=== PATIENT | male | born 1975 | race Caucasian/White ===

== ENCOUNTER 2017-08-20 05:57 | Emergency (ER) | payer MEDICAID ==
--- NOTE | 2017-08-20 06:11 | ED Physician Documentation ---
PD HPI ABD PAIN - Stated complaint Stated Complaint: ABD PX - Chief complaint Chief Complaint: Abd Pain - History obtained from History obtained from: Patient - History of Present Illness Timing - onset: How many days ago (2) Timing - duration: Days Timing - details: Gradual onset, Waxing and waning Quality: Cramping, Aching Location: Suprapubic, LLQ Improved by: No: Eating Worsened by: Position, Palpation. No: Eating, Breathing Associated symptoms: Nausea. No: Fever, Vomiting, Diarrhea, Melena, Hematochezia, Dysuria Similar symptoms before: Diagnosis (diverticulitis couple of times) Recently seen: Not recently seen Review of Systems Constitutional: denies: Fever, Chills, Myalgias GI: reports: Abdominal Pain, Nausea (intermittent, but has been still eating and drinking fluids.). denies: Diarrhea, Bloody / black stool : denies: Dysuria, Frequency PD PAST MEDICAL HISTORY - Past Medical History Cardiovascular: None Respiratory: None Neuro: None GI: Diverticulitis - Past Surgical History Past Surgical History: Yes - Present Medications Home Medications: Ambulatory Orders Medication Instructions Recorded Confirmed Cyclobenzaprine [Flexeril] 10 mg PO TID PRN #20 tablet 10/17/16 Cephalexin [Keflex] 500 mg PO BID #14 capsule 08/20/17 HYDROcod/ACETAM 5/325 [[place] 5/325] 1 tab PO Q6H PRN #15 tablet 08/20/17 Ibuprofen [Motrin] 600 mg PO TID #20 tab 08/20/17 Metronidazole [Flagyl] 500 mg PO BID #14 tablet 08/20/17 Ondansetron Odt [Zofran] 4 mg TL Q6H PRN #15 tablet 08/20/17 tiZANidine [Zanaflex] 4 mg PO PRN PRN 08/20/17 08/20/17 - Allergies Allergies/Adverse Reactions: Allergies Allergy/AdvReac Type Severity Reaction Status Date / Time No Known Drug Allergies Allergy Verified 08/20/17 06:03 - Social History Does the pt smoke?: No Smoking Status: Never smoker Does the pt drink ETOH?: Yes Does the pt have substance abuse?: No - Immunizations Immunizations are current?: Yes - POLST Patient has POLST: No PD ED PE NORMAL - Vitals Vital signs reviewed: Yes - General General: Alert and oriented X 3, No acute distress, Well developed/nourished - Neck Neck: Supple, no meningeal sign, No adenopathy - Cardiac Cardiac: RRR, No murmur - Respiratory Respiratory: Clear bilaterally - Abdomen Abdomen: Normal bowel sounds, Soft, Non distended, No organomegaly, Other ( tender LLQ/suprapubic without guarding nor percussion tenderness. No rebound. ) - Male Male : Deferred - Rectal Rectal: Deferred - Back Back: No CVA TTP - Derm Derm: Normal color, Warm and dry - Neuro Neuro: Alert and oriented X 3, No motor deficit, Normal speech Results - Vitals Vitals: Vital Signs - 24 hr 08/20/17 06:00 Temperature 36.3 C L Heart Rate 108 H Respiratory 16 Rate Blood Pressure 144/88 H O2 Saturation 97 Oxygen O2 Source Room air Departure - Departure Disposition: 01 Home, Self Care Clinical Impression: Abdominal pain Qualifiers: Abdominal location: lower abdomen, unspecified Qualified Code(s): R10.30 - Lower abdominal pain, unspecified Diverticulitis Qualifiers: Diverticulitis site: large intestine Diverticulitis bleeding: without bleeding Diverticulitis complication: without perforation or abscess Qualified Code(s): K57.32 - Diverticulitis of large intestine without perforation or abscess without bleeding Condition: Stable Record reviewed to determine appropriate education?: Yes Instructions: ED Abdominal Pain Unkn Cause, ED Diverticulitis Follow-Up: Rosi Monson ARNP [Primary Care Provider] - Prescriptions: Metronidazole [Flagyl] 500 mg PO BID #14 tablet Cephalexin [Keflex] 500 mg PO BID #14 capsule Ibuprofen [Motrin] 600 mg PO TID #20 tab HYDROcod/ACETAM 5/325 [[place] 5/325] 1 tab PO Q6H PRN #15 tablet PRN Reason: Pain Ondansetron Odt [Zofran] 4 mg TL Q6H PRN #15 tablet PRN Reason: Nausea / Vomiting Comments: If this is feeling like prior episodes of diverticulitis and you don't seem to bad at this point, then can be treated presumptively and with oral medications. Keflex and Flagyl twice daily (antibiotics) for a week. Ibuprofen twice daily for inflammation. Add Zofran if needed for nausea, and for pain Tylenol or hydrocodone as needed. Recheck if not improving over the next 2-3 days, and sooner if worse pain, fevers, vomiting, bloody stools, other concerns.
[2017-08-20] MEDS ORDERED: SODIUM CHLORIDE FLUSH 0.9% 10 ML SYRINGE IVP ONE (06:18)
[2017-08-20] MEDS ORDERED: CEPHALEXIN 250 MG CAPSULE PO STA (06:23)
[2017-08-20] MEDS ORDERED: ONDANSETRON ODT 4 MG TABLET TL STA (06:23)
[2017-08-20] MEDS ORDERED: HYDROcod/ACETAM 5/325 MG TABLET PO STA (06:23)
[2017-08-20] MEDS ORDERED: HYDROcod/ACET 5/325 Prepack 6 PO ONE ×2 (06:23→06:34)
[2017-08-20] MEDS ORDERED: metroNIDAZOLE 250 MG TABLET PO STA (06:23)
[2017-08-20] MEDS ORDERED: IBUPROFEN 400 MG TABLET PO STA (06:23)
[2017-08-20] MEDS ORDERED: metroNIDAZOLE 250 MG TABLET PO ONE (06:32)
[2017-08-20] MEDS ORDERED: HYDROcod/ACETAM 5/325 MG TABLET ONE (06:33)
[2017-08-20] MEDS ORDERED: CEPHALEXIN 250 MG CAPSULE PO ONE (06:33)
[2017-08-20] MEDS ORDERED: IBUPROFEN 400 MG TABLET PO ONE (06:33)
[2017-08-20] MEDS ORDERED: ONDANSETRON ODT 4 MG TABLET ONE (06:34)
[2017-08-20 06:46] VITALS: BP 138/86
== END 2017-08-20 06:43 | disposition home or self-care (01) ==
LOC: ED 05:57
DX: K57.32 Diverticulitis of large intestine without perforation or abscess without bleeding (principal)
CPT/HCPCS: 99283; 99284; A9270; Q0162

== ENCOUNTER 2017-08-29 13:15 | Emergency (ER) | payer MEDICAID ==
--- NOTE | 2017-08-29 13:52 | ED Physician Documentation ---
PD HPI ABD PAIN - Stated complaint Stated Complaint: ABD PX - Chief complaint Chief Complaint: Abd Pain - History obtained from History obtained from: Patient - History of Present Illness Timing - onset: How many days ago (about 10 days ago) Timing - duration: Days (has had this pain for about 10 days, seen in ED at the initial of the pain and treated empirically for diverticulitis. He says he improved but not all better and is having increased pain again after being done the abx couple days ago. No fevers, no vomiting, some soft stools.) Timing - details: Gradual onset, Still present Quality: Cramping, Aching Location: Suprapubic, LLQ Radiation: No: Left flank, Right flank Improved by: Position. No: Eating Worsened by: Position, Palpation. No: Eating, Moving, Breathing Associated symptoms: No: Fever, Nausea, Vomiting, Diarrhea, Hematochezia Similar symptoms before: Diagnosis (diverticulitis) Recently seen: Emergency Dept (10 days ago for this) Review of Systems Constitutional: denies: Fever, Chills Nose: denies: Rhinorrhea / runny nose, Congestion Throat: denies: Sore throat Respiratory: denies: Cough GI: reports: Abdominal Pain. denies: Nausea, Vomiting, Diarrhea, Bloody / black stool : denies: Dysuria, Frequency, Hematuria Skin: denies: Rash PD PAST MEDICAL HISTORY - Past Medical History Past Medical History: Yes Cardiovascular: None Respiratory: None Neuro: None GI: Diverticulitis - Past Surgical History Past Surgical History: Yes - Present Medications Home Medications: Ambulatory Orders Medication Instructions Recorded Confirmed Amox/Clav 875/125 [Augmentin] 1 each PO Q12H #20 tablet 08/29/17 HYDROcod/ACETAM 5/325 [[place] 5/325] 1 tab PO Q6H PRN #20 tablet 08/29/17 Metronidazole [Flagyl] 500 mg PO BID #14 tablet 08/29/17 - Allergies Allergies/Adverse Reactions: Allergies Allergy/AdvReac Type Severity Reaction Status Date / Time No Known Drug Allergies Allergy Verified 08/29/17 13:24 - Social History Does the pt smoke?: No Smoking Status: Never smoker Does the pt drink ETOH?: Yes Does the pt have substance abuse?: No - Immunizations Immunizations are current?: Yes - POLST Patient has POLST: No PD ED PE NORMAL - Vitals Vital signs reviewed: Yes - General General: Alert and oriented X 3, No acute distress, Well developed/nourished - HEENT HEENT: Moist mucous membranes, Pharynx benign - Neck Neck: Supple, no meningeal sign, No adenopathy - Cardiac Cardiac: RRR, No murmur - Respiratory Respiratory: Clear bilaterally - Abdomen Abdomen: Normal bowel sounds, Soft, Non distended, No organomegaly, Other ( tender llq/suprapubic area with some local guarding. No percussion nor rebound. ) - Male Male : Deferred - Rectal Rectal: Deferred - Back Back: No CVA TTP - Derm Derm: Normal color, Warm and dry, No rash - Extremities Extremities: No tenderness to palpate, Normal ROM s pain - Neuro Neuro: Alert and oriented X 3, No motor deficit, Normal speech Results - Vitals Vitals: Vital Signs - 24 hr 08/29/17 08/29/17 08/29/17 13:21 14:38 16:15 Temperature 36 C L 36.2 C L 36.3 C L Heart Rate 75 60 73 Respiratory 16 12 15 Rate Blood Pressure 138/94 H 155/94 H 141/91 H O2 Saturation 99 96 97 Oxygen O2 Source Room air - Labs Labs: Laboratory Tests 08/29/17 08/29/17 14:10 14:10 WBC 7.4 RBC 5.50 Hgb 16.1 Hct 46.9 MCV 85.3 MCH 29.3 MCHC 34.3 RDW 13.5 Plt Count 271 MPV 8.1 Neut # 5.2 Lymph # 1.5 [place] # 0.6 Eos # 0.1 Baso # 0.1 Absolute Nucleated RBC 0.03 Nucleated RBC % 0.5 Sodium 139 Potassium 4.2 Chloride 100 L Carbon Dioxide 28 Anion Gap 11.0 BUN 23 H Creatinine 1.2 Estimated GFR (MDRD) 67 L Glucose 102 H Calcium 10.0 Total Bilirubin 0.8 AST 35 ALT 75 H Alkaline Phosphatase 64 Total Protein 8.1 Albumin 4.9 Globulin 3.2 Albumin/Globulin Ratio 1.5 Lipase 40 - Rads (name of study) abd CT Radiology: Prelim report reviewed (diverticulosis, with some stranding in sigmoid area and a <1 cm rounded fluid collection near that, likely a small abscess. ) PD MEDICAL DECISION MAKING - ED course Complexity details: reviewed results, considered differential, d/w patient, d/w healthcare management consultant (Dr. Romo, who felt his clinical exam and status (no fever, not vomiting, not hurting too badly) along with CT findings does not warrant admission. To change home abx to Augmentin/Flagyl and f/u PMD in few days. ) Departure - Departure Disposition: Home, Self Care Clinical Impression: Diverticulitis Qualifiers: Diverticulitis site: large intestine Diverticulitis bleeding: without bleeding Diverticulitis complication: with abscess Qualified Code(s): K57.20 - Diverticulitis of large intestine with perforation and abscess without bleeding Condition: Stable Record reviewed to determine appropriate education?: Yes Instructions: ED Diverticulitis Follow-Up: Rosi Monson ARNP [Primary Care Provider] - Prescriptions: Amox/Clav 875/125 [Augmentin] 1 each PO Q12H #20 tablet HYDROcod/ACETAM 5/325 [[place] 5/325] 1 tab PO Q6H PRN #20 tablet PRN Reason: Pain Metronidazole [Flagyl] 500 mg PO BID #14 tablet Comments: There is just a very small abscess less than a centimeter in size and mild inflammation around it. Our surgeon health companion looked at it and feels that this can be treated still with just oral medication outpatient. We will change the antibiotics though to Augmentin and metronidazole twice daily. Drink lots of fluids. Use some probiotics once or twice a day. Add Tylenol or hydrocodone if needed for pain. Return if not improved and without pain over the next several days. Return sooner if increasing pain, fever, diffuse pain, other concerns. Discharge Date/Time: 08/29/17 16:42
[2017-08-29] MEDS ORDERED: SODIUM CHLORIDE FLUSH 0.9% 10 ML SYRINGE IVP ONE (14:07)
[2017-08-29 14:23] LABS: BASOPHILS # (AUTO) 0.1 10^3/uL (0.0-0.1); BASOPHILS % (AUTO) 0.9 %; EOSINOPHILS # (AUTO) 0.1 10^3/uL (0.0-0.7); EOSINOPHILS % (AUTO) 1.2 %; HCT - HEMATOCRIT 46.9 % (42.0-52.0); HGB - HEMOGLOBIN 16.1 g/dL (14.0-18.0); LYMPHOCYTES # (AUTO) 1.5 10^3/uL (1.5-3.5); LYMPHOCYTES % (AUTO) 20.6 %; MEAN CORPUSCULAR HEMOGLOBIN 29.3 pg (27.0-31.0); MEAN CORPUSCULAR HGB CONC 34.3 g/dL (32.0-36.0); MEAN CORPUSCULAR VOLUME 85.3 fL (80.0-94.0); MEAN PLATELET VOLUME 8.1 fL (7.4-11.4); MONOCYTES # (AUTO) 0.6 10^3/uL (0.0-1.0); MONOCYTES % (AUTO) 7.5 %; NEUTROPHILS # (AUTO) 5.2 10^3/uL (1.5-6.6); NEUTROPHILS % (AUTO) 69.8 %; NUCLEATED RED BLOOD CELLS AUTO 0.5 /100WBC; RED CELL DISTRIBUTION WIDTH 13.5 % (12.0-15.0); UNCORRECTED WHITE BLOOD COUNT 7.4 x10^3/uL; WHITE BLOOD COUNT 7.4 x10^3/uL (4.8-10.8)
[2017-08-29] MEDS ORDERED: IOPAMIDOL-300 100 ML VIAL ONE (14:23)
[2017-08-29] MEDS ORDERED: metroNIDAZOLE 500 MG/100 ML 500 MG/100 ML BAG ONE (14:27)
[2017-08-29] MEDS ORDERED: KETOROLAC 30 MG/ML VIAL ONE (14:27)
[2017-08-29] MEDS ORDERED: cefTRIAXone 1 GM VIAL ONE (14:28)
[2017-08-29] MEDS: KETOROLAC 60 MG/2 ML VIAL IVP STA (14:29)
[2017-08-29] MEDS: cefTRIAXone 1 GM in SODIUM CHLORIDE 0.9% MINIBAG 100 ML IV STA (14:29)
[2017-08-29 14:38] LABS: ALBUMIN/GLOBULIN RATIO 1.5 (1.0-2.2); BILIRUBIN,TOTAL 0.8 mg/dL (0.2-1.0); CREATININE 1.2 mg/dL (0.6-1.2); POTASSIUM 4.2 mmol/L (3.5-5.0); TOTAL PROTEIN 8.1 g/dL (6.7-8.2)
[2017-08-29] MEDS: SODIUM CHLORIDE 0.9% 1,000 ML IV ONE (14:45)
[2017-08-29] MEDS: metroNIDAZOLE 500 MG/100 ML 500 MG/100 ML BAG IV ONE (15:03)
--- NOTE | 2017-08-29 15:15 | CT Report ---
EXAM: CT ABDOMEN AND PELVIS EXAM DATE: 08/29/2017 02:52 PM. CLINICAL HISTORY: Abdominal pain COMPARISONS: None. TECHNIQUE: Routine helical CT imaging was performed through the abdomen and pelvis. IV contrast: 100 cc Isovue-300. Enteric contrast: No. Reconstructions: Coronal and sagittal. In accordance with CT protocol optimization, one or more of the following dose reduction techniques w ere utilized for this exam: automated exposure control, adjustment of mA and/or KV based on patient s ize, or use of iterative reconstructive technique. FINDINGS: Lung Bases: Unremarkable. Liver: Normal. No masses. Gallbladder/Bile Ducts: Unremarkable. Spleen: There is mild splenomegaly. Pancreas: Normal. Adrenal Glands: Normal. Kidneys: Normal. No masses or hydronephrosis. Peritoneal Cavity/Bowel: There is distal colon diverticulosis. There is minimal adjacent fat strandin g. There is a subcentimeter peripherally enhancing fluid collection along the anterior margin of the sigmoid colon (image 80 series 3). Stomach and small bowel demonstrate no acute abnormalities. The ap pendix is well visualized and normal. Pelvic Organs: Normal. The bladder and visualized pelvic organs are within normal limits. Vasculature: No aneurysms or other significant abnormality. Bones: No significant abnormality. Other: None. IMPRESSION: 1. There is sigmoid colon diverticulosis with minimal associated adjacent fat stranding. Findings cou ld represent mild diverticulitis. There is a subcentimeter peripherally enhancing fluid collection al latasha the anterior margin of the sigmoid colon which could represent a small abscess. There is no evide nce of perforation or drainable abscess. 2. No evidence of appendicitis or bowel obstruction. 3. There is mild splenomegaly. [facility] Referring Provider Line: [phone] SITE ID: [id number]
[2017-08-29 16:15] VITALS: BP 141/91
== END 2017-08-29 16:42 | disposition home or self-care (01) ==
LOC: ED 13:15
DX: K57.20 Diverticulitis of large intestine with perforation and abscess without bleeding (principal)
CPT/HCPCS: 36415; 74177; 80053; 83690; 85025; 99283; 99284; Q9967

== ENCOUNTER 2018-07-23 15:12 | Emergency (ER) | payer MEDICAID ==
[2018-07-23 15:52] LABS: BILIRUBIN,URINE NEGATIVE (NEGATIVE); GLUCOSE, URINE (UA) NEGATIVE (NEGATIVE); KETONES,URINE (UA) NEGATIVE (NEGATIVE); LEUKOCYTE ESTERASE, URINE NEGATIVE (NEGATIVE); NITRITE,URINE NEGATIVE (NEGATIVE); OCCULT BLOOD,URINE SMALL (NEGATIVE); PH,URINE 5.5 PH (5.0-7.5); PROTEIN,URINE NEGATIVE (NEGATIVE); UROBILINOGEN,URINE 0.2 (NORMAL) E.U./dL (NORMAL)
[2018-07-23 15:53] LABS: CLARITY,URINE CLEAR (CLEAR)
[2018-07-23 16:08] LABS: BACTERIA,URINE None Seen /HPF (None Seen); RBC,URINE 0-5 /HPF (0-5); SQUAMOUS EPITHELIAL CELL,UR NONE SEEN (<= Few)
[2018-07-23 16:27] LABS: BASOPHILS # (AUTO) 0.1 10^3/uL (0.0-0.1); EOSINOPHILS # (AUTO) 0.1 10^3/uL (0.0-0.7); EOSINOPHILS % (AUTO) 1.8 %; HGB - HEMOGLOBIN 16.1 g/dL (14.0-18.0); MEAN CORPUSCULAR HEMOGLOBIN 30.1 pg (27.0-31.0); MEAN CORPUSCULAR HGB CONC 35.1 g/dL (32.0-36.0); MEAN CORPUSCULAR VOLUME 85.6 fL (80.0-94.0); MONOCYTES # (AUTO) 0.4 10^3/uL (0.0-1.0); MONOCYTES % (AUTO) 6.6 %; NEUTROPHILS # (AUTO) 3.6 10^3/uL (1.5-6.6); NEUTROPHILS % (AUTO) 58.6 %; PLT - PLATELET COUNT 250 10^3/uL (130-450); RED BLOOD COUNT 5.34 10^6/uL (4.70-6.10); WHITE BLOOD COUNT 6.2 x10^3/uL (4.8-10.8)
[2018-07-23 16:41] LABS: ALBUMIN 4.8 g/dL (3.2-5.5); ALBUMIN/GLOBULIN RATIO 1.4 (1.0-2.2); BILIRUBIN,TOTAL 0.8 mg/dL (0.2-1.0); CALCIUM 9.5 mg/dL (8.5-10.3); TOTAL PROTEIN 8.3 g/dL (6.7-8.2)
--- NOTE | 2018-07-23 16:53 | ED Physician Documentation ---
PD HPI ABD PAIN - Stated complaint Stated Complaint: LOWER AB PX - Chief complaint Chief Complaint: Abd Pain - History obtained from History obtained from: Patient - History of Present Illness Timing - onset: How many days ago (3) Timing - duration: Days (3) Timing - details: Gradual onset, Still present, Waxing and waning Quality: Cramping, Aching Location: Suprapubic, LLQ Radiation: No: Lower back Improved by: Laying still. No: Eating Worsened by: Moving, Palpation. No: Eating, Breathing Associated symptoms: Nausea. No: Fever, Vomiting, Diarrhea, Hematochezia, Loss of appetite Similar symptoms before: Diagnosis (diverticulitis 3 times previous. Treated outpt twice of those.) Recently seen: Not recently seen Review of Systems Constitutional: denies: Fever, Chills Nose: denies: Rhinorrhea / runny nose, Congestion Throat: denies: Sore throat Cardiac: denies: Chest pain / pressure, Palpitations Respiratory: denies: Dyspnea, Cough GI: reports: Abdominal Pain, Nausea. denies: Vomiting, Constipation, Diarrhea, Bloody / black stool : denies: Dysuria, Frequency PD PAST MEDICAL HISTORY - Past Medical History Past Medical History: Yes Cardiovascular: None Respiratory: None GI: Diverticulitis - Past Surgical History Past Surgical History: Yes - Present Medications Home Medications: Ambulatory Orders Medication Instructions Recorded Confirmed HYDROcod/ACETAM 5/325 [[place] 5/325] 1 tab PO Q6H PRN #20 tablet 08/29/17 Cephalexin [Keflex] 500 mg PO BID #14 capsule 07/23/18 Cyclobenzaprine [Flexeril] 1 tab PO TID 07/23/18 L. Rhamnosus GG/Inulin [Culturelle 1 tab PO DAILY 07/23/18 Probiotics Capsule] Metronidazole [Flagyl] 500 mg PO BID #14 tablet 07/23/18 Naproxen 375 mg PO BID #20 tablet 07/23/18 Ondansetron HCl [Zofran] 4 mg PO Q6H PRN #10 tablet 07/23/18 Oxycodone HCl/Acetaminophen 1 each PO Q6H PRN #20 tablet 07/23/18 [Percocet 5-325 mg Tablet] raNITIdine [Zantac] 1 tab PO DAILY 07/23/18 - Allergies Allergies/Adverse Reactions: Allergies Allergy/AdvReac Type Severity Reaction Status Date / Time No Known Drug Allergies Allergy Verified 07/23/18 16:33 - Social History Does the pt smoke?: No Smoking Status: Never smoker Does the pt drink ETOH?: Yes Does the pt have substance abuse?: No - Immunizations Immunizations are current?: Yes - POLST Patient has POLST: No PD ED PE NORMAL - Vitals Vital signs reviewed: Yes - General General: Alert and oriented X 3, No acute distress, Well developed/nourished - HEENT HEENT: Pharynx benign - Neck Neck: Supple, no meningeal sign, No adenopathy - Cardiac Cardiac: RRR, No murmur - Respiratory Respiratory: Clear bilaterally - Abdomen Abdomen: Normal bowel sounds, Soft, Non distended, No organomegaly, Other (mild tenderness LLQ/suprapubic without peritoneal signs. ) - Male Male : Deferred - Rectal Rectal: Deferred - Back Back: No CVA TTP - Derm Derm: Normal color, Warm and dry - Neuro Neuro: Alert and oriented X 3, No motor deficit, Normal speech Results - Vitals Vitals: Oxygen O2 Source Room air - Labs Labs: Laboratory Tests 07/23/18 07/23/18 07/23/18 15:48 16:20 16:20 WBC 6.2 RBC 5.34 Hgb 16.1 Hct 45.7 MCV 85.6 MCH 30.1 MCHC 35.1 RDW 13.0 Plt Count 250 MPV 8.0 Neut # (Auto) 3.6 Lymph # (Auto) 2.0 [place] # (Auto) 0.4 Eos # (Auto) 0.1 Baso # (Auto) 0.1 Absolute Nucleated RBC 0.01 Nucleated RBC % 0.2 Sodium 137 Potassium 4.1 Chloride 103 Carbon Dioxide 25 Anion Gap 9.0 BUN 19 Creatinine 1.0 Estimated GFR (MDRD) 82 L Glucose 93 Calcium 9.5 Total Bilirubin 0.8 AST 36 ALT 60 Alkaline Phosphatase 57 Total Protein 8.3 H Albumin 4.8 Globulin 3.5 Albumin/Globulin Ratio 1.4 Lipase 35 Urine Color YELLOW Urine Clarity CLEAR Urine pH 5.5 Ur Specific [place] 1.015 Urine Protein NEGATIVE Urine Glucose (UA) NEGATIVE Urine Ketones NEGATIVE Urine Occult Blood SMALL H Urine Nitrite NEGATIVE Urine Bilirubin NEGATIVE Urine Urobilinogen 0.2 (NORMAL) Ur Leukocyte Esterase NEGATIVE Urine RBC 0-5 Urine WBC 0-3 Ur Squamous Epith Cells NONE SEEN Urine Bacteria None Seen Ur Microscopic Review INDICATED Urine Culture Comments NOT INDICATED PD MEDICAL DECISION MAKING - ED course Complexity details: considered differential (he has had several episodes of diverticulitis with same symptoms and is okay with treating empirically outpatient. Tried to get PCP appt but referred to ER. ), d/w patient - Sepsis Event Vital Signs: Oxygen O2 Source Room air Departure - Departure Disposition: Home, Self Care Clinical Impression: Diverticulitis Qualifiers: Diverticulitis site: unspecified part of intestinal tract Diverticulitis bleeding: without bleeding Diverticulitis complication: without perforation or abscess Qualified Code(s): K57.92 - Diverticulitis of intestine, part unspecified, without perforation or abscess without bleeding Abdominal pain Qualifiers: Abdominal location: lower abdomen, unspecified Qualified Code(s): R10.30 - Lower abdominal pain, unspecified Condition: Stable Record reviewed to determine appropriate education?: Yes Instructions: ED Diverticulitis Follow-Up: Rosi Monson ARNP [Primary Care Provider] - Prescriptions: Cephalexin [Keflex] 500 mg PO BID #14 capsule Metronidazole [Flagyl] 500 mg PO BID #14 tablet Naproxen 375 mg PO BID #20 tablet Ondansetron HCl [Zofran] 4 mg PO Q6H PRN #10 tablet PRN Reason: Nausea / Vomiting Oxycodone HCl/Acetaminophen [Percocet 5-325 mg Tablet] 1 each PO Q6H PRN #20 tablet PRN Reason: Pain Comments: We will treat this like regular diverticulitis. Use your usual medications. Add Percocet if needed for pain. Naproxen twice daily anti-inflammatory. Use ondansetron if needed for nausea. Antibiotics of cephalexin and metronidazole twice daily for a week. Recheck if not improving over the next few days. Return if worsening pain, fevers, vomiting, bloody stool, other concerns. Discharge Date/Time: 07/23/18 17:33
[2018-07-23] MEDS ORDERED: NAPROXEN 250 MG TABLET PO STA (17:04)
[2018-07-23] MEDS ORDERED: metroNIDAZOLE 250 MG TABLET PO STA (17:04)
[2018-07-23] MEDS ORDERED: cephALEXin 250 MG CAPSULE PO STA (17:04)
[2018-07-23] MEDS ORDERED: oxyCODONE 5 MG TABLET PO STA (17:04)
[2018-07-23 17:26] VITALS: BP 136/90
== END 2018-07-23 17:33 | disposition home or self-care (01) ==
LOC: ED 15:12
DX: K57.92 Diverticulitis of intestine, part unspecified, without perforation or abscess without bleeding (principal)
CPT/HCPCS: 36415; 80053; 81001; 83690; 85025; 99283; 99284; A9270; 81003; 87086

== ENCOUNTER 2019-03-02 19:30 | Emergency (ER) | payer MEDICAID ==
[2019-03-02] MEDS ORDERED: BENZONATATE 100 MG CAPSULE PO STA (20:19)
[2019-03-02] MEDS ORDERED: AMOX/CLAV 875 MG/125 MG TABLET PO STA (20:19)
[2019-03-02] MEDS ORDERED: DEXAMETHASONE 10 MG/ML VIAL PO STA (20:19)
[2019-03-02] MEDS ORDERED: CHERRY SYRUP 10 ML UDC PO ONE (20:19)
--- NOTE | 2019-03-02 20:22 | ED Physician Documentation ---
PD HPI URI - Stated complaint Stated Complaint: COUGH/SOA - Chief complaint Chief Complaint: Resp - History obtained from History obtained from: Patient, Family - History of Present Illness Timing - onset: How many weeks ago (1) Timing duration: Weeks (1) Timing details: Gradual onset, Still present Associated symptoms: Ear pain, Nasal congestion, Rhinorrhea, Sore throat, Productive cough, Other (fatigue) Contributing factors: Sick contact Improves by: Rest, Medication Similar symptoms before: Diagnosis (URI) Recently seen: Not recently seen - Additional information Additional information: 44-year-old male with a history of diverticulitis has come to the emergency department with a week long history of cough and congestion which he thought would resolve itself. He has been coughing up yellow-green phlegm, he has some muffled hearing, he started out with a sore throat and muscle aches and pains he did not develop a fever. Review of Systems Constitutional: reports: Myalgias, Fatigue. denies: Fever Eyes: denies: Decreased vision Ears: reports: Ear pain Nose: reports: Rhinorrhea / runny nose, Congestion Throat: reports: Sore throat Cardiac: denies: Chest pain / pressure, Palpitations Respiratory: reports: Cough. denies: Dyspnea GI: reports: Vomiting (post tussive) Skin: denies: Rash Musculoskeletal: reports: Neck pain. denies: Back pain, Extremity pain PD PAST MEDICAL HISTORY - Past Medical History Cardiovascular: None Respiratory: None GI: Diverticulitis - Past Surgical History Past Surgical History: Yes - Present Medications Home Medications: Ambulatory Orders Medication Instructions Recorded Confirmed HYDROcod/ACETAM 5/325 [[place] 5/325] 1 tab PO Q6H PRN #20 tablet 08/29/17 Cephalexin [Keflex] 500 mg PO BID #14 capsule 07/23/18 Cyclobenzaprine [Flexeril] 1 tab PO TID 07/23/18 L. Rhamnosus GG/Inulin [[place] 1 tab PO DAILY 07/23/18 Probiotics Capsule] Metronidazole [Flagyl] 500 mg PO BID #14 tablet 07/23/18 Naproxen 375 mg PO BID #20 tablet 07/23/18 Ondansetron HCl [Zofran] 4 mg PO Q6H PRN #10 tablet 07/23/18 Oxycodone HCl/Acetaminophen 1 each PO Q6H PRN #20 tablet 07/23/18 [Percocet 5-325 mg Tablet] raNITIdine [Zantac] 1 tab PO DAILY 07/23/18 Cyclobenzaprine [Flexeril] 10 mg PO TID PRN #20 tablet 11/19/18 Ibuprofen [Motrin] 400 mg PO Q6H #30 tablet 11/19/18 Lidocaine Patch 5% [Lidoderm Patch] 1 patch TOP DAILY PRN #10 patch 11/19/18 Amox/Clav 875/125 [Augmentin] 1 each PO Q12H #20 tablet 03/02/19 Benzonatate [Tessalon Perle] 100 - 200 mg PO TID PRN #30 capsule 03/02/19 - Allergies Allergies/Adverse Reactions: Allergies Allergy/AdvReac Type Severity Reaction Status Date / Time No Known Drug Allergies Allergy Verified 03/02/19 19:38 - Social History Does the pt smoke?: No Smoking Status: Never smoker Does the pt drink ETOH?: Yes Does the pt have substance abuse?: No - Immunizations Immunizations are current?: Yes - POLST Patient has POLST: No PD ED PE NORMAL - Vitals Vital signs reviewed: Yes (hypertensive ) - General General: Alert and oriented X 3, No acute distress, Well developed/nourished - HEENT HEENT: Atraumatic, PERRL, EOMI, Other (The left TM is inflamed in the attic and there is distortion of the landmarks. The right is dull lichenified and with distortion of the landmarks. ) - Neck Neck: Supple, no meningeal sign, No bony TTP - Cardiac Cardiac: RRR, No murmur - Respiratory Respiratory: No respiratory distress, Clear bilaterally - Abdomen Abdomen: Soft, Non tender - Back Back: No CVA TTP, No spinal TTP - Derm Derm: Normal color, Warm and dry, No rash - Extremities Extremities: No deformity, No edema - Neuro Neuro: Alert and oriented X 3, ict analyst 2-12 intact, No motor deficit, No sensory deficit, Normal speech Eye Opening: Spontaneous Motor: Obeys Commands Verbal: Oriented GCS Score: 15 - Psych Psych: Normal mood, Normal affect Results - Vitals Vitals: Vital Signs - 24 hr 03/02/19 19:36 Temperature 36.5 C Heart Rate 81 Respiratory 20 Rate Blood Pressure 157/89 H O2 Saturation 98 Oxygen O2 Source Room air PD MEDICAL DECISION MAKING - ED course Complexity details: considered differential, d/w patient, d/w family ED course: 44-year-old male with a cough and congestion has otitis on examination he is administered dexamethasone 10 mg orally we will place him on some Augmentin and he is given a dose of Tessalon as well. Departure - Departure Disposition: Home, Self Care Clinical Impression: Otitis media Qualifiers: Otitis media type: suppurative Chronicity: acute Laterality: bilateral Recurrence: not specified as recurrent Spontaneous tympanic membrane rupture: without spontaneous rupture Qualified Code(s): H66.003 - Acute suppurative otitis media without spontaneous rupture of ear drum, bilateral Condition: Stable Instructions: ED Otitis Media Acute Adult Follow-Up: Rosi Monson ARNP [Primary Care Provider] - Prescriptions: Amox/Clav 875/125 [Augmentin] 1 each PO Q12H #20 tablet Benzonatate [Tessalon Perle] 100 - 200 mg PO TID PRN #30 capsule PRN Reason: Cough
[2019-03-02 20:29] VITALS: BP 145/97
== END 2019-03-02 20:30 | disposition home or self-care (01) ==
LOC: ED 19:30
DX: H66.003 Acute suppurative otitis media without spontaneous rupture of ear drum, bilateral (principal)
CPT/HCPCS: 99283; A9270